=== PATIENT | female | born 1985 | race Caucasian/White ===

== ENCOUNTER 2020-11-19 14:06 | Emergency (ER) | payer BC ==
[~2020-11-19] VITALS: Ht 160 cm; Wt 62.1 kg
[2020-11-19 14:21] VITALS: BP 142/97
[2020-11-19] MEDS ORDERED: OXYMETAZOLINE HCL NASAL SPRAY 30 ML BOTTLE NS ONE ×2 (15:22→15:30)
[2020-11-19] MEDS ORDERED: LIDOCAINE VISCOUS 2% UD 15 ML UDC ONE (15:22)
[2020-11-19] MEDS ORDERED: LIDOCAINE VISCOUS 2% UD 15 ML UDC MM ONE (15:30)
[2020-11-19] MEDS ORDERED: SILVER NITRATE APPLICATOR 1 EA BOX ONE (15:42)
--- NOTE | 2020-11-19 16:41 | NUR ---
Patient discharged to home in stable condition. Written and verbal after care instructions given. Patient verbalizes understanding of instruction.
== END 2020-11-19 16:42 | disposition home or self-care (01) ==
LOC: ER 14:11
DX: R04.0 Epistaxis (principal); J45.909 Unspecified asthma, uncomplicated